=== PATIENT | female | born 1955 | race Two or more races ===

== ENCOUNTER 2019-08-01 09:12 | Emergency (ER) | payer MEDICARE, OTHER ==
[2019-08-01] MEDS ORDERED: BENZONATATE 100 MG CAPSULE PO ONE (09:47)
--- NOTE | 2019-08-01 09:57 | ER Document Report ---
HPI - HPI Pain Level: 1 Context: Patient is a 63-year-old female with a history of congestive heart failure and hypertension who presents to the emergency department with a chief complaint of sore throat. Patient reports she developed a sore throat, left ear pain, productive cough on Saturday. Patient reports she has had chills with subjective fever. Patient reports that she has taken cough drops without much relief. Patient states she was seen at the urgent care on Saturday and placed on amoxicillin for a left ear infection. Patient reports her cough has continued to get worse and that she does not feel better. Patient denies nausea, vomiting or diarrhea. She states she does have sick contacts in the home who have similar symptoms. Patient reports she did start Claritin as the provider on Saturday at the urgent care told her this also could be related to allergies. Past Medical History - General Information source: Patient - Social History Smoking Status: Never Smoker Chew tobacco use (# tins/day): No Drug Abuse: None Lives with: Family Family History: None Patient has suicidal ideation: No Patient has homicidal ideation: No - Past Medical History Cardiac Medical History: Reports: Hx Congestive Heart Failure, Hx Hypertension Pulmonary Medical History: Reports: None EENT Medical History: Reports: None Neurological Medical History: Reports: None Endocrine Medical History: Reports: None Renal/ Medical History: Reports: None Malignancy Medical History: Reports: None GI Medical History: Reports: None Musculoskeletal Medical History: Reports None Skin Medical History: Reports None Psychiatric Medical History: Reports: None Traumatic Medical History: Reports: None Infectious Medical History: Reports: None Surgical Hx: Negative Vertical Provider Document - CONSTITUTIONAL Agree With Documented VS: Yes Exam Limitations: No Limitations General Appearance: No Apparent Distress - HEENT HEENT: Atraumatic, Normocephalic, PERRLA Notes: There is no tonsillar hypertrophy. Uvula is midline. Pharynx slightly erythematous. Tonsils slightly erythematous without exudate. There is no cervical lymphadenopathy. Right TM pearly de paz, able to visualize landmarks clearly, no erythema or bulging of the TM. Patient does have tragus tenderness to the left ear. TM is slightly erythematous without bulging. Landmarks slightly distorted. No drainage from the ear canal. No perforation noted - NECK Neck: Normal Inspection - RESPIRATORY Respiratory: Breath Sounds Normal, No Respiratory Distress - CARDIOVASCULAR Cardiovascular: Regular Rate, Regular Rhythm - GI/ABDOMEN Gastrointestinal: Abdomen Soft, Abdomen Non-Tender, Normal Bowel Sounds - NEURO Level of Consciousness: Awake, Alert, Appropriate - DERM Integumentary: Warm, Dry, No Rash Course - Re-evaluation Re-evalutation: 08/01/19 09:53 We will obtain a chest x-ray to rule out pneumonia. I did inform the patient that she is likely not feeling better with her cough as this is due to a virus. I did inform her that she should continue taking the amoxicillin as she does have a healing otitis media of the left ear. I did inform her that antibiotics are not used to treat viruses which is probably what is causing her cough. She reports she feels like she cannot sleep at night as she is constantly coughing. Patient does not have any wheezing or rhonchi noted at this time the lungs are clear throughout bilaterally. We will give the patient Roxann Garcia here in the emergency department. Patient is nontoxic-appearing. 08/01/19 10:53 I did discuss the results of the x-ray and strep test with the patient. Strict return precautions given. Patient nontoxic-appearing. Patient is not coughing during evaluation. - Vital Signs Vital signs: Temp Pulse Resp BP Pulse Ox 99.3 F 106 H 18 128/76 H 96 08/01/19 09:23 08/01/19 09:23 08/01/19 09:23 08/01/19 09:23 08/01/19 09:23 - Diagnostic Test Radiology reviewed: Reports reviewed Radiology results interpreted by me: Chest X-Ray 08/01/19 09:50 IMPRESSION: 1. Low lung volumes. 2. Hiatal hernia. 3. No acute cardiopulmonary disease evident. Discharge - Discharge Clinical Impression: Cough, Sore throat (viral), Left ear pain Otitis media, left Qualifiers: Otitis media type: suppurative Chronicity: acute Recurrence: not specified as recurrent Spontaneous tympanic membrane rupture: without spontaneous rupture Qualified Code(s): H66.002 - Acute suppurative otitis media without spontaneous rupture of ear drum, left ear URI (upper respiratory infection) Qualifiers: URI type: unspecified viral URI Qualified Code(s): J06.9 - Acute upper respiratory infection, unspecified Condition: Stable Disposition: HOME, SELF-CARE Additional Instructions: *Today you are seen in the emergency department for a cough, left ear pain and sore throat. *Please continue taking the amoxicillin that was prescribed for your left ear infection. It does appear that your left ear infection is healing. *Your strep test was negative. *Your chest x-ray did not show an pneumonia or fluid in the lung. *Your cough and congestion are most likely due to a viral infection which is why you are not feeling better while being on the amoxicillin. Antibiotics do not treat viruses. Typically a viral infection that does cause an upper respiratory illness last about 10 to 14 days. There is no cure for this. It just has to run its course. You can have congestion of the nose, sinuses, middle ears and bronchial tubes of the lungs. *Take the Tessalon Perles every 8 hours as needed for cough. Please use Tylenol and ibuprofen as needed for pain. Please drink plenty of fluids. *Humidifier may help. UPPER RESPIRATORY ILLNESS: You have a viral infection of the respiratory passages -- a "cold." This common infection causes nasal congestion, drainage, and often sore throat and cough. It is highly contagious. The disease usually lasts about 10 to 14 days. There is no "cure" for the viral infection -- it must run its course. If there is a complication, such as bacterial infection in the nose, sinuses, middle ear, or bronchial tubes, antibiotics may be required. The antibiotics won't affect the virus. Drink plenty of fluids. A humidifier may help. An expectorant medication or decongestant may make you more comfortable. Use acetaminophen or ibuprofen for fever or aches. See the doctor if fever persists over two days, if there is any significant worsening of your symptoms, or if you simply fail to improve as expected. DECONGESTANT MEDICATION: A decongestant medicine has been prescribed. Often this medicine is combined in the same tablet with an antihistamine or expectorant. This type of medicine is helpful in treating a bad cold or sinus condition, as well as in treatment of the nasal congestion of hay fever. It is not of much benefit for lung infections. Decongestant medicines are related to stimulants. They can cause an increase in blood pressure and heart rate. Persons with heart disease and high blood pressure should not take decongestants without discussing this with the physician. If you develop palpitations, chest pain, headache, or tremors, stop the medicine and consult your physician. COUGH-SUPPRESSANT & EXPECTORANT MEDICATION: You are to use a cough medication as needed for relief of symptoms. This medicine is a combination of an expectorant (to make the mucous thinner and more easily "coughed up") and a cough suppressant (to reduce the frequency of coughing). The cough-suppressant medicine is related to narcotics. You may experience mild nausea and sleepiness. Some patients who are very sensitive to narcotics may have stomach pain from this medicine. Taking the medicine with food reduces these side effects. Do not drive or work with machinery until you know how this medicine affects you. The expectorant should have no side effects. Iodine-containing expectorants (such as organidin) should not be taken by persons with active thyroid disease unless approved by your doctor. Call the doctor if you develop shortness of breath, hives, rash, itching, lightheadedness, or severe nausea and vomiting. USE OF ACETAMINOPHEN (Tylenol): Acetaminophen may be taken for pain relief or fever control. It's much safer than aspirin, offering a wider range of "safe" dosages. It is safe during . Some brand names are Tylenol, Panadol, Datril, Anacin 3, Tempra, and Liquiprin. Acetaminophen can be repeated every four hours. The following are maximum recommended dosages: >89 pounds or adults 650 mg to 900 mg Acetaminophen can be repeated every four hours. Maximum dose not to exceed 4000 mg a day. SMOKING: If you smoke, you should stop smoking. The tar and chemicals in cigarette smoke are harmful. Smoking has been shown to cause: emphysema chronic bronchitis lung cancer mouth and throat cancer stomach and pancreas cancer premature aging defects In addition, smoking increases ear and lung infections in children of smokers. FOLLOW-UP CARE: If you have been referred to a physician for follow-up care, call the physicians office for an appointment as you were instructed or within the next two days. If you experience worsening or a significant change in your symptoms, notify the physician immediately or return to the Emergency Department at any time for re-evaluation. Prescriptions: Benzonatate [Tessalon Perles 100 mg Capsule] 100 mg PO Q8HP PRN #40 capsule PRN Reason:
--- NOTE | 2019-08-01 10:16 | RADIOLOGY REPORT (SQ) ---
EXAM DESCRIPTION: CHEST 2 VIEWS COMPLETED DATE/TIME: 08/01/2019 10:02 am REASON FOR STUDY: productive cough x 1 week, chills COMPARISON: None. NUMBER OF VIEWS: Two view. TECHNIQUE: Frontal and lateral radiographic views of the chest acquired. LIMITATIONS: None. FINDINGS: LUNGS AND PLEURA: Low lung volumes. No opacities, masses or pneumothorax. No pleural eff usion. MEDIASTINUM AND HILAR STRUCTURES: Hiatal hernia. Contours otherwise normal. HEART AND VASCULAR STRUCTURES: Heart normal in size and contour. No evidence for failure. BONES: No acute findings. HARDWARE: None in the chest. OTHER: No other significant finding. IMPRESSION: 1. Low lung volumes. 2. Hiatal hernia. 3. No acute cardiopulmonary disease evident. TECHNICAL DOCUMENTATION: JOB ID: [id number] [employer]- All Rights Reserved Reading location - IP/workstation name: [email or web address]
[2019-08-01 11:07] VITALS: BP 111/61
== END 2019-08-01 11:08 | disposition home or self-care (01) ==
LOC: ER 09:12
DX: H66.002 Acute suppurative otitis media without spontaneous rupture of ear drum, left ear (principal); J06.9 Acute upper respiratory infection, unspecified; J02.9 Acute pharyngitis, unspecified; I50.9 Heart failure, unspecified; I11.0 Hypertensive heart disease with heart failure
CPT/HCPCS: 87070; 87880; 71046; A9270; 99283